=== PATIENT | male | born 2000 | race Caucasian/White ===

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

== ENCOUNTER 2020-09-06 13:32 | Emergency (ER) | payer OTHER ==
[~2020-09-06] VITALS: Ht 172.7 cm; Wt 95.5 kg
[2020-09-06] MEDS ORDERED: LIDOCAINE 1% 10 ML VIAL IM ONE (14:30)
[2020-09-06 14:45] VITALS: BP 137/69
== END 2020-09-06 15:26 | disposition home or self-care (01) ==
LOC: EMS 13:36
DX: L03.032 Cellulitis of left toe (principal)
CPT/HCPCS: 10060; 99282; J3490

== ENCOUNTER 2020-11-30 14:56 | Emergency (ER) | payer OTHER ==
[~2020-11-30] VITALS: Ht 175.3 cm; Wt 104.5 kg
[2020-11-30 14:57] VITALS: BP 129/76
[2020-11-30] MEDS ORDERED: ASPI-989 PO (14:59)
== END 2020-11-30 16:29 | disposition home or self-care (01) ==
LOC: EMS 15:01
DX: L03.031 Cellulitis of right toe (principal)
CPT/HCPCS: 99283

== ENCOUNTER 2020-12-05 15:28 | Emergency (ER) | payer OTHER ==
[~2020-12-05] VITALS: Ht 175.3 cm; Wt 81.8 kg
[~2020-12-05 15:28] MED LIST: ASPI-989 PO
[2020-12-05 17:24] VITALS: BP 127/68
== END 2020-12-05 17:25 | disposition home or self-care (01) ==
LOC: EMS 15:31
DX: N50.82 Scrotal pain (principal); L03.031 Cellulitis of right toe; Z86.16 Personal history of COVID-19
CPT/HCPCS: 99281; 99285; Z7502

== ENCOUNTER 2020-12-26 16:37 | Emergency (ER) | payer OTHER ==
[~2020-12-26] VITALS: Ht 175.3 cm; Wt 104.5 kg
[2020-12-26 17:14] VITALS: BP 126/92
== END 2020-12-26 17:53 | disposition home or self-care (01) ==
LOC: EMS 16:38
DX: J02.9 Acute pharyngitis, unspecified (principal); Z20.822 Contact with and (suspected) exposure to COVID-19; Z79.899 Other long term (current) drug therapy
CPT/HCPCS: 99283; U0003

== ENCOUNTER 2021-03-17 06:54 | Emergency (ER) | payer OTHER ==
[~2021-03-17] VITALS: Ht 175.3 cm; Wt 109.1 kg
[2021-03-17] MEDS ORDERED: IBUPROFEN 600 MG TABLET PO ONE (07:15)
[2021-03-17 08:00] VITALS: BP 125/57
== END 2021-03-17 08:28 | disposition home or self-care (01) ==
LOC: EMS 06:55
DX: R07.89 Other chest pain (principal); Z79.899 Other long term (current) drug therapy
CPT/HCPCS: 71045; 93005; 99284

== ENCOUNTER 2021-05-07 23:27 | Emergency (ER) | payer OTHER ==
[~2021-05-07] VITALS: Ht 175.3 cm; Wt 111.4 kg
[2021-05-08] MEDS ORDERED: SODIUM CHLORIDE 0.9% 1,000 ML IV ONE
[2021-05-08] MEDS ORDERED: KETOROLAC TROMETHAMINE 30 MG/ML VIAL IVP ONE
[2021-05-08 00:27] LABS: LYMPHOCYTES % (AUTO) 50.3 % (22.0-44.0); MEAN CORPUSCULAR HEMOGLOBIN 29.4 pg (26.0-34.0); MEAN CORPUSCULAR HGB CONC 33.5 G/dL (31.0-37.0); RED BLOOD CELL COUNT(AUTO) 4.98 MIL/uL (4.50-5.90)
[2021-05-08 00:30] LABS: ANION GAP 8 mmol/L (8-16); CALCIUM, TOTAL 9.3 mg/dL (8.8-10.5); CARBON DIOXIDE 29 mmol/L (22-29); CHLORIDE 107 mmol/L (98-107); CREATININE 1.04 mg/dL (0.60-1.30); EOSINOPHILS % (AUTO) 3.5 % (1.0-6.0); GLOMERULAR FILTR. RATE CALC > 60 mL/min (>60); GLUCOSE,RANDOM 97 mg/dL (70-110); HEMATOCRIT 43.8 % (41-53); HEMOGLOBIN 14.7 g/dL (13.5-17.5); LYMPHOCYTES # (AUTO) 3.7 K/uL (1.0-4.8); MEAN CORPUSCULAR VOLUME 88 fL (80-100); MONOCYTES # (AUTO) 0.5 K/uL (0.1-1.0); MONOCYTES % (AUTO) 7.4 % (2.0-9.0); NEUTROPHILS # (AUTO) 2.8 K/uL (1.8-7.7); NEUTROPHILS % (AUTO) 37.8 % (40.0-70.0); PLATELET COUNT (AUTO) 238 K/uL (150-450); POTASSIUM 3.7 mmol/L (3.5-5.1); RED CELL DISTRIBUTION WIDTH 13.1 % (11.5-14.5); SODIUM SERUM 144 mmol/L (136-145); UREA NITROGEN, BLOOD 10 mg/dL (7-18)
[2021-05-08 00:36] LABS: ALANINE AMINOTRANSFERASE 25 U/L (12-78); ALBUMIN 4.3 g/dL (3.4-5.0); ALKALINE PHOSPHATASE 97 U/L (46-116); ASPARTATE AMINOTRANSFERASE 22 U/L (15-37); BILIRUBIN,TOTAL 0.2 mg/dL (0.1-1.0); TOTAL PROTEIN, SERUM 7.6 g/dL (6.4-8.2)
[2021-05-08 00:57] LABS: APPEARANCE,URINE CLEAR (CLEAR); BILIRUBIN,URINE NEGATIVE (NEGATIVE); GLUCOSE, URINE (UA) NEGATIVE (NEGATIVE); KETONES,URINE NEGATIVE (NEGATIVE); LEUKOCYTE ESTERASE ,URINE NEGATIVE (NEGATIVE); NITRATE,URINE NEGATIVE (NEGATIVE); OCCULT BLOOD,URINE NEGATIVE (NEGATIVE); PH,URINE 5.5 (5.0-8.0); PROTEIN,URINE NEGATIVE (NEGATIVE); UROBILINOGEN,URINE 0.2 mg/dL (<=1.0)
[2021-05-08 02:39] VITALS: BP 137/59
== END 2021-05-08 02:10 | disposition home or self-care (01) ==
LOC: EMS 23:28
DX: I86.1 Scrotal varices (principal); R10.32 Left lower quadrant pain; Z79.899 Other long term (current) drug therapy
CPT/HCPCS: 36415; 74176; 76870; 80053; 81003; 85025; 96360; 99284; J1885; J7030

== ENCOUNTER 2021-07-26 14:20 | Emergency (ER) | payer OTHER ==
[~2021-07-26] VITALS: Ht 175.3 cm; Wt 113.0 kg
[2021-07-26 16:14] VITALS: BP 125/73
[2021-07-26] MEDS ORDERED: ACETAMINOPHEN 325 MG TABLET PO ONE (16:15)
== END 2021-07-26 16:20 | disposition home or self-care (01) ==
LOC: EMS 14:21
DX: R10.30 Lower abdominal pain, unspecified (principal)
CPT/HCPCS: 81002; 99282; Z7502; Z7610

== ENCOUNTER 2022-04-12 17:46 | Emergency (ER) | payer OTHER ==
[~2022-04-12] VITALS: Ht 177.8 cm; Wt 113.6 kg
[2022-04-12 18:32] VITALS: BP 100/63
[2022-04-12 19:29] LABS: COVID AG,FIA SOURCE NASOPHARYNGEAL
[2022-04-12 19:51] LABS: INFLUENZA TYPE B NEGATIVE FOR TYPE B (NEGATIVE)
[2022-04-12 19:57] LABS: INFLUENZA TYPE A POSITIVE FOR TYPE A (NEGATIVE)
[2022-04-12] MEDS ORDERED: OSEL75 PO (20:03)
[2022-04-12] MEDS ORDERED: IBUP-2070 PO (20:04)
[2022-04-12] MEDS ORDERED: ACET-3385 PO (20:05)
== END 2022-04-12 20:41 | disposition home or self-care (01) ==
LOC: EMS 17:46
DX: J10.1 Influenza due to other identified influenza virus with other respiratory manifestations (principal); Z20.822 Contact with and (suspected) exposure to COVID-19; Z86.16 Personal history of COVID-19
CPT/HCPCS: 71045; 87804; 99284

== ENCOUNTER 2025-02-19 05:37 | Emergency (ER) | payer SELFPAY ==
[~2025-02-19] VITALS: Ht 175.3 cm; Wt 127.3 kg
[~2025-02-19 05:37] MED LIST changes: +ACET-3385 PO; +ASPI-4 PO; -ASPI-989 PO; +IBUP-1492 PO; +OSEL75CA45 PO
[2025-02-19 05:50] VITALS: TEMP 98
[2025-02-19] MEDS: FAMOTIDINE 20 MG TABLET PO ONE (06:11)
[2025-02-19] MEDS: MAG HYDROX/ALUMINUM HYD/SIMETH ES 30 ML SUSPENSION UDCUP PO ONE (06:11)
[2025-02-19 06:22] LABS: PLATELET COUNT (AUTO) 251 K/uL (150-450); RED BLOOD CELL COUNT(AUTO) 5.31 MIL/uL (4.50-5.90); RED CELL DISTRIBUTION WIDTH 13.8 % (11.5-14.5); WHITE BLOOD COUNT (AUTO) 6.9 K/uL (4.5-11.0)
[2025-02-19 06:30] LABS: CALCIUM, TOTAL 8.6 mg/dL (8.8-10.5); CREATININE 1.06 mg/dL (0.60-1.30); GLOMERULAR FILTR. RATE CALC > 60 mL/min (>60); GLUCOSE,RANDOM 104 mg/dL (70-110); SODIUM SERUM 141 mmol/L (136-145); UREA NITROGEN, BLOOD 13 mg/dL (7-18)
[2025-02-19 06:34] LABS: CREATINE KINASE, TOTAL ONLY 324 U/L (39-308)
[2025-02-19 06:39] LABS: TROPONIN I-HIGH SENSITIVITY 37 ng/L (<76)
[2025-02-19 08:04] LABS: APPEARANCE,URINE CLEAR (CLEAR); GLUCOSE, URINE (UA) NEGATIVE (NEGATIVE); LEUKOCYTE ESTERASE ,URINE NEGATIVE (NEGATIVE); NITRATE,URINE NEGATIVE (NEGATIVE); OCCULT BLOOD,URINE NEGATIVE (NEGATIVE); SPECIFIC GRAVITIY, URINE 1.024 (1.003-1.030)
[2025-02-19] MEDS ORDERED: IBUP-1492 PO (08:15)
[2025-02-19 08:24] VITALS: BP 135/55; PULSE 55; RESP 15; O2SAT 98
== END 2025-02-19 08:25 | disposition home or self-care (01) ==
LOC: EMS 05:38
DX: R07.89 Other chest pain (principal); R06.02 Shortness of breath; Z79.82 Long term (current) use of aspirin
CPT/HCPCS: 71045; 80048; 81003; 82550; 83880; 84484; 85025; 85610; 85730; 93005; 99285; 36415-L1; 36415-TC